=== PATIENT | male | born 1970 | race Caucasian/White ===

== ENCOUNTER 2022-07-31 18:10 | Inpatient (IN) | payer OTHER, SELFPAY ==
[2022-07-31 18:28] VITALS: BP 113/64; PULSE 68; RESP 18; TEMP 36.8; O2SAT 100; BMI 21.1
--- NOTE | 2022-07-31 18:47 | DI.RAD.S_ITS ---
PROCEDURE: XR ELBOW LT MIN 3V INDICATIONS: pain, swelling, redness TECHNIQUE: 3 views of the elbow were acquired. COMPARISON: None. FINDINGS: Bones: No acute fractures or dislocations. No suspicious bony lesions. Soft tissues: Diffuse soft tissue edema is seen surrounding the elbow. No obvious joint effusion. IMPRESSION: Diffuse nonspecific soft tissue edema. No acute osseous abnormality. If clinical suspicion and/or symptoms persist, additional imaging with repeat plain films, or advanced imaging (e.g. CT, MRI) may be helpful for further assessment. Dictated by: Guido Woodson M.D. on 07/31/2022 at 19:19 Approved by: Guido Woodson M.D. on 07/31/2022 at 19:20
[2022-07-31 19:00] LABS: Add Manual Diff / Slide Review NO; Basophils Absolute Auto 100 /uL (0-100); Basophils Percent Auto 0.5 % (0-2); Eosinophils Absolute Auto 0 /uL (0-450); Eosinophils Percent Auto 0.3 % (2-4); Hematocrit 42.3 % (41-53); Hemoglobin 14.8 g/dL (13.5-17.5); Lymphocytes Absolute Auto 1300 /uL (1100-4500); Lymphocytes Percent Auto 9.3 % (25-40); Mean Corpuscular HGB Conc 34.9 % (30-36); Mean Corpuscular Hemoglobin 32.3 PG (26-34); Mean Corpuscular Volume 92.6 fL (80-100); Monocytes Absolute Auto 1400 /uL (0-900); Monocytes Percent Auto 9.8 % (3-14); Neutrophils Absolute Auto 11300 /uL (1500-7000); Neutrophils Percent Auto 80.1 % (50-75); Platelet Count 315 X10^3/uL (150-400); Red Blood Cell Count 4.57 X10^6/uL (4.5-5.9); Red Cell Distribution Width 12.1 % (11.6-14.8); White Blood Cell Count 14.1 X10^3/uL (4.5-11.0)
[2022-07-31 19:15] LABS: Lactate (Lactic Acid) 1.4 mmol/L (0.7-2.1)
[2022-07-31 19:17] LABS: Alanine Aminotransferase 14 IU/L (<50); Albumin 4.5 g/dL (3.5-5.0); Albumin Globulin Ratio 1.1 (1.0-2.8); Alkaline Phosphatase 62 U/L (38-126); Aspartate Aminotransferase 23 IU/L (17-59); BUN Creatinine Ratio 14.4 (6-22); Blood Urea Nitrogen 13 mg/dL (9-20); C-Reactive Protein Quant 4.4 mg/dL (<1.0); Calcium 8.9 mg/dL (8.4-10.2); Carbon Dioxide 26 mmol/L (22-32); Chloride 97 mmol/L (98-107); Estimated Glomerular Filt Rate > 60 mL/min (>60); Glucose 97 mg/dL (70-100); HEMOLYSIS < 15 (0-50); Potassium 3.8 mmol/L (3.4-5.1); Sodium 136 mmol/L (137-145); Total Protein 8.5 g/dL (6.3-8.2)
[2022-07-31 19:35] LABS: Erythrocyte Sedimentation Rate 30 MM/HR (0-15)
[2022-07-31] MEDS: SODIUM CHLORIDE 0.9% 1,000 ML 1000 ML IV (21:01)
[2022-07-31 21:09] VITALS: BP 111/66; PULSE 82; TEMP 37.7; O2SAT 99
--- NOTE | 2022-07-31 21:12 | PC.NURSE ---
Pt reports bursitis of left elbow that began 4 days ago with increased swelling. Reports fever, chills, fatigue, some nausea, and lightheadedness. Left elbow is swollen, red, warm to the touch with streaking up to the interior aspect of arm. Pt reports recent inguinal hernia repair about 15 days ago. Denies SOB and chest pain.
[2022-07-31] MEDS: DOXYCYCLINE HYCLATE 100 MG TABLET PO (22:06)
--- NOTE | 2022-07-31 22:15 | ED_ITS ---
HPI - Wound/Laceration General Chief Complaint: Wound/Laceration Stated Complaint: lt elbow bursitis, red lines to chest Time Seen by Provider: 07/31/22 18:47 Source: patient Mode of arrival: Ambulatory History of Present Illness HPI narrative: 52-year-old male nonsmoker with noncontributory medical history presents with a chief complaint of 4 days of worsening left elbow pain, swelling and redness and now red streaks up his arm along with fever and chills. He denies any nausea or vomiting. He is had no chest pain or shortness of breath. He denies any injury but states that he developed swelling as stated that has been gradually getting worse. He denies any history of skin infections. He has pain with range of motion and palpation and improvement with rest. Related Data Allergies Allergy/AdvReac Type Severity Reaction Status Date / Time shrimp Allergy Severe Anaphylaxis Verified 07/31/22 21:35 ciprofloxacin [From Cipro] AdvReac Verified 07/31/22 21:35 Review of Systems Review of Systems Narrative: GENERAL: See HPI HEENT: Denies sinus pain, ear pain, sore throat, difficulty swallowing, dizziness. RESPIRATORY: Denies dyspnea, cough, wheezing, hemoptysis, sputum. CARDIOVASCULAR: Denies chest pain, palpitations, orthopnea, edema, GASTROINTESTINAL: Denies nausea, vomiting, abdominal pain, diarrhea, constipation, melena. : Denies dysuria, frequency, incontinence, hematuria, urinary retention. MUSCULOSKELETAL: See HPI SKIN: See HPI NEUROLOGIC: Denies weakness, headache, numbness, change in speech, confusion, seizures, incoordination. PSYCHIATRIC: No concerning psychosocial issues. 12 point review of systems is negative except for those stated above Patient History Social History Smoking Status: Never smoker Smoking Status: Never smoker alcohol intake frequency: 0-2 drinks per day Substance Use Type: does not use Exam Narrative Exam Narrative: GENERAL: [52] year old patient appears stated age. Well-developed patient, in mild distress. HEAD: Atraumatic. Normocephalic. EYES: Pupils equal round and reactive. Extraocular motions intact. No scleral icterus. No injection or drainage. ENT: Nose without bleeding, purulent drainage. Throat without erythema, tonsillar hypertrophy or exudate. Airway patent. NECK: Trachea midline. Non tender CARDIOVASCULAR: Regular rate and rhythm without murmurs, gallops, or rubs. RESPIRATORY: Clear to auscultation. Breath sounds equal bilaterally. No wheezes, rales, or rhonchi. GASTROINTESTINAL: Abdomen soft, non-tender, nondistended. EXTREMITIES: Full but painful range of motion at left elbow significant swelling and induration with erythema and some skin sloughing overlying the olecranon and significant surrounding erythema and induration with lymphangitis extending up to the axilla, the area of induration and erythema extends proximal from the obvious abscess 8-10 cm BACK: Nontender without deformity or crepitance. No flank tenderness. NEURO: AOx3. SKIN: No rash or erythema of visible areas Initial Vital Signs Initial Vital Signs: Vital Signs Temperature 98.3 F 07/31/22 18:28 Pulse Rate 68 07/31/22 18:28 Respiratory Rate 18 07/31/22 18:28 Blood Pressure 113/64 07/31/22 18:28 Pulse Oximetry 100 07/31/22 18:28 Oxygen Delivery Method 07/31/22 18:28 Procedures Abscess I/D I&D #1: Site: upper extremity Side (if applicable): left Local Anesthetic: lidocaine 2% Amount of anesthesia used (mL): 8 Technique: incised with #11 blade Amount of fluid expressed (mL): 15 Irrigation: No Packing used?: none Course Orders Ordered: ED Orders 07/31/22 18:40 C-Reactive Protein Quant Stat Complete Blood Count AUTO DIFF Stat Comprehensive Metabolic Panel Stat Erythrocyte Sedimentation Rate Stat Lactate (Lactic Acid) Stat 07/31/22 18:47 XR elbow LT min 3V Stat 07/31/22 18:52 Blood Culture Stat 07/31/22 22:09 Wound Culture and Gram Stain Stat 07/31/22 22:18 COVID19 -Nasal RAPID/Pre-Proc Stat Discontinued Medications Doxycycline Hyclate (Doxycycline Hyclate 100 Mg Tablet) 100 mg PO NOW ONE Stop: 07/31/22 21:52 Last Admin: 07/31/22 22:06 Dose: 100 mg Documented By: TAMMY Hydromorphone HCl (Hydromorphone 0.5 Mg Inj) 0.5 mg IV NOW ONE Stop: 07/31/22 22:18 Last Admin: 07/31/22 22:24 Dose: 0.5 mg Documented By: TAMMY Sodium Chloride (Normal Saline 0.9%) 1,000 mls @ 1,000 mls/hr IV BOLUS ONE Stop: 07/31/22 19:46 Last Infusion: 07/31/22 22:14 Dose: 0 mls/hr Documented By: Admin: 07/31/22 21:01 Dose: 1,000 mls/hr Documented By: TAMMY Vancomycin HCl/Dextrose (Vancomycin) 1,500 mg in 300 mls @ 200 mls/hr IV NOW ONE Stop: 07/31/22 23:45 Last Infusion: 07/31/22 23:58 Dose: 0 mls/hr Documented By: Admin: 07/31/22 22:24 Dose: 200 mls/hr Documented By: TAMMY Ondansetron HCl (Ondansetron 4 Mg/2 Ml Inj) 4 mg IV NOW ONE Stop: 07/31/22 22:18 Last Admin: 07/31/22 22:25 Dose: 4 mg Documented By: TAMMY Consultations Consultation #1: Discussed with on-call orthopedist, he agrees to take patient onto his service and will see him early in the morning, request patient be NPO after midnight Vital Signs Vital signs: Vital Signs - 8 hr 07/31/22 18:28 07/31/22 21:09 Temperature 98.3 F 99.8 F H Pulse Rate 68 82 Respiratory Rate 18 Blood Pressure 113/64 111/66 Pulse Oximetry 100 99 Oxygen Delivery Method Room Air Room Air MDM - Wound/Laceration Lab Data Result diagrams: 07/31/22 18:40 07/31/22 18:40 Labs: Lab Results 07/31/22 07/31/22 07/31/22 Range/Units 18:40 18:40 18:40 WBC 14.1 H (4.5-11.0) X10^3/uL RBC 4.57 (4.5-5.9) X10^6/uL Hgb 14.8 (13.5-17.5) g/dL Hct 42.3 (41-53) % MCV 92.6 (80-100) fL MCH 32.3 (26-34) PG MCHC 34.9 (30-36) % RDW 12.1 (11.6-14.8) % Plt Count 315 (150-400) X10^3/uL Neut % (Auto) 80.1 H (50-75) % Lymph % (Auto) 9.3 L (25-40) % Mcpherson % (Auto) 9.8 (3-14) % Eos % (Auto) 0.3 L (2-4) % Baso % (Auto) 0.5 (0-2) % Neut # (Auto) 61061 H (6458-6081) /uL Lymph # (Auto) 1300 (8030-0149) /uL Mcpherson # (Auto) 1400 H (0-900) /uL Eos # (Auto) 0 (0-450) /uL Baso # (Auto) 100 (0-100) /uL ESR 30 H (0-15) MM/HR Sodium 136 L (137-145) mmol/L Potassium 3.8 (3.4-5.1) mmol/L Chloride 97 L (98-107) mmol/L Carbon Dioxide 26 (22-32) mmol/L BUN 13 (9-20) mg/dL Creatinine 0.90 (0.66-1.25) mg/dL Estimated GFR > 60 (>60) mL/min BUN/Creatinine Ratio 14.4 (6-22) Glucose 97 (70-100) mg/dL Lactate 1.4 (0.7-2.1) mmol/L Calcium 8.9 (8.4-10.2) mg/dL Total Bilirubin 1.0 (0.2-1.3) mg/dL AST 23 (17-59) IU/L ALT 14 (<50) IU/L Alkaline Phosphatase 62 (38-126) U/L C-Reactive Protein 4.4 H (<1.0) mg/dL Total Protein 8.5 H (6.3-8.2) g/dL Albumin 4.5 (3.5-5.0) g/dL Globulin 4.0 (1.7-4.1) g/dL Albumin/Globulin Ratio 1.1 (1.0-2.8) Discharge Plan Departure Patient Disposition: Admitted As Inpatient Clinical Impression: Abscess Admit Date/Time: 07/31/22 22:27 Admit Provider: Mary Issa
[2022-07-31] MEDS: VANCOMYCIN 1,500 MG/300 ML PIGGYBACK 200 MG IV (22:24)
[2022-07-31] MEDS: HYDROMORPHONE 0.5 MG INJ IV (22:24)
[2022-07-31] MEDS: ONDANSETRON 4 MG/2 ML INJ IV (22:25)
[2022-08-01] VITALS (25 sets, daily range): BP systolic 88–137; BP diastolic 54–83; PULSE 57–83; RESP 11–20; TEMP 35.9–37.4; O2SAT 95–100; BMI 21.1
[2022-08-01 02:08] LABS: COVID19 -Nasal RAPID Negative (Negative)
[2022-08-01] MEDS: VANCOMYCIN 1,000 MG/200 ML PIGGYBACK 200 MG IV ×2 (08:06→18:57)
[2022-08-01] MEDS: SODIUM CHLORIDE 0.9% 1,000 ML 125 ML IV (08:06)
--- NOTE | 2022-08-01 09:00 | PC.NURSE ---
Dr Bello at [facility], pt on surgery schedule but has one case ahead of him. pt to remain npo.
[2022-08-01] MEDS: LACTATED RINGERS 1,000 ML 84 ML IV (16:03)
--- NOTE | 2022-08-01 16:06 | P.HP_ITS ---
History of Present Illness History of Present Illness Date Patient Seen: 08/01/22 Time Patient Seen: 08:40 Date of Onset of Symptoms: 07/28/22 Chief complaint: lt elbow bursitis, red lines to chest Narrative: Mr. Pete is a 52 yo M with 4 day history of worsening left elbow pain, redness and swelling. He presented to ER for severe pain and swelling to his left elbow over the olecranon. ER exam showed drainage purulent wound from the subcutanous wound. Patient was admitted for IV antibiotics to orthopedic service. After evaluation and discussing treatment options, patient is scheduled for emergent I&D in the operating room. Patient History Family & Social History Social History: household members none Safety & Behavioral: Feels Safe in Current Yes Environment Tobacco & Substance use: Tobacco type cigarettes,smokeless tobacco Smoking Status Former smoker alcohol intake current alcohol intake frequency 0-2 drinks per day Substance Use Type does not use Meds Home Medications and Allergies Home Medications Medication Instructions Recorded Confirmed Type No Known Home Medications 08/01/22 08/01/22 History Allergies Allergy/AdvReac Type Severity Reaction Status Date / Time shrimp Allergy Severe Anaphylaxis Verified 07/31/22 21:35 ciprofloxacin [From Cipro] AdvReac Verified 07/31/22 21:35 Review of Systems Review of Systems ROS: Yes All systems reviewed with the patient and are negative except as otherwise documented Exam Vital Signs (past 8 hours): - 08/01/22 08:08 08/01/22 08:09 08/01/22 08:09 Temperature Pulse Rate 67 65 Respiratory Rate Blood Pressure 99/55 L Pulse Oximetry 98 98 Oxygen Delivery Method 08/01/22 08:14 08/01/22 08:14 08/01/22 08:21 Temperature Pulse Rate 64 61 Respiratory Rate Blood Pressure 99/56 L Pulse Oximetry 100 100 Oxygen Delivery Method 08/01/22 08:21 08/01/22 08:30 08/01/22 09:00 Temperature Pulse Rate 62 Respiratory Rate Blood Pressure 104/61 98/56 L Pulse Oximetry 100 Oxygen Delivery Method 08/01/22 09:00 08/01/22 09:30 08/01/22 10:00 Temperature Pulse Rate 63 71 Respiratory Rate Blood Pressure 102/58 L Pulse Oximetry 99 100 Oxygen Delivery Method 08/01/22 10:00 08/01/22 10:15 08/01/22 10:15 Temperature Pulse Rate 60 67 Respiratory Rate Blood Pressure 107/58 L Pulse Oximetry 95 Oxygen Delivery Method 08/01/22 10:30 08/01/22 11:00 08/01/22 11:00 Temperature Pulse Rate 57 L 60 Respiratory Rate Blood Pressure 88/57 L Pulse Oximetry 99 99 Oxygen Delivery Method 08/01/22 15:47 Temperature 98.5 F Pulse Rate 61 Respiratory Rate 20 Blood Pressure 108/64 Pulse Oximetry 99 Oxygen Delivery Method Room Air Oxygen Delivery Method Room Air Extrem Other: left elbow with open wound draining purulent material, area of erythema around the wound extending to forearm and mid upper arm. Arm compartments feels soft w/o s/s of compartment syndrome. Neurovascularly intact on exam. Objective Labs Result Diagrams: 07/31/22 18:40 07/31/22 18:40 Labs: Laboratory Results - last 24 hr 07/31/22 07/31/22 07/31/22 18:40 18:40 18:40 WBC 14.1 H RBC 4.57 Hgb 14.8 Hct 42.3 MCV 92.6 MCH 32.3 MCHC 34.9 RDW 12.1 Plt Count 315 Neut % (Auto) 80.1 H Lymph % (Auto) 9.3 L Allen % (Auto) 9.8 Eos % (Auto) 0.3 L Baso % (Auto) 0.5 Neut # (Auto) 45827 H Lymph # (Auto) 1300 Allen # (Auto) 1400 H Eos # (Auto) 0 Baso # (Auto) 100 ESR 30 H Sodium 136 L Potassium 3.8 Chloride 97 L Carbon Dioxide 26 BUN 13 Creatinine 0.90 Estimated GFR > 60 BUN/Creatinine Ratio 14.4 Glucose 97 Lactate 1.4 Calcium 8.9 Total Bilirubin 1.0 AST 23 ALT 14 Alkaline Phosphatase 62 C-Reactive Protein 4.4 H Total Protein 8.5 H Albumin 4.5 Globulin 4.0 Albumin/Globulin Ratio 1.1 SARS-CoV-2 (PCR) 07/31/22 22:46 WBC RBC Hgb Hct MCV MCH MCHC RDW Plt Count Neut % (Auto) Lymph % (Auto) Allen % (Auto) Eos % (Auto) Baso % (Auto) Neut # (Auto) Lymph # (Auto) Allen # (Auto) Eos # (Auto) Baso # (Auto) ESR Sodium Potassium Chloride Carbon Dioxide BUN Creatinine Estimated GFR BUN/Creatinine Ratio Glucose Lactate Calcium Total Bilirubin AST ALT Alkaline Phosphatase C-Reactive Protein Total Protein Albumin Globulin Albumin/Globulin Ratio SARS-CoV-2 (PCR) Negative Assessment & Plan Assessment & Plan narrative: Patient has septic left olecranon bursitis with extending abscess into subcutaneous tissue of upper arm and forearm. Risks for surgery include but not limited to bleeding, infection, nerve/blood vessel injury, recurrent infection, need for additional procedure, elbow stiffness, pain. Patient understands and would like to proceed with surgery. He is schedule for left elbow/arm I&D. Time Spent With Patient Critical Care time: I spent a total of [] minutes of critical care time on this patient's care today; this time is exclusive of procedural time.
--- NOTE | 2022-08-01 17:04 | SUR.OPER ---
Supine on gel mattress OR table, head on one pillow. Safety strap over thighs, right arm <90 abduction on padded armboard and secured. Left arm on wide padded armboard in surgeon control. Lower legs secured with tape over blanket.
--- NOTE | 2022-08-01 17:39 | P.OP_ITS ---
Operative Date/Time/Diagnoses Date of procedure: 08/01/22 Time of procedure: 16:00 Pre-op diagnosis: 1. Left elbow septic bursitis 2. Left arm abscess Post-op diagnosis: same Procedure & Clinicians Procedure: 1. Left elbow olecranon bursa irrigation and debridement 2. Left arm abscess irrigation and debridement Same procedure as scheduled: Yes Indications: Mr. Pete is a 52 yo M with worsening left elbow septic olecranon bursitis and cellulitis. He has worsening swelling, pain and drainage abscess with worsening cellulitis. After informed consent was obtained, patient was taken to OR for emergent I&D of his left arm. Surgeon: Mary Issa Transformer Builder: Christina Ibanez Click Yes if Unassisted: No Anesthesia Type: General Operative Notes Closure Type: primary Specimen(s): other Estimated Blood Loss (mL): 5 Blood products transfused: none Procedure in detail: After patient was consented of risks and benefits of surgery, informed consent was obtained and placed in the chart. Patient was taken to the operating room. Prophylactic antibiotic was given less than half our prior to skin incision. A tourniquet was placed on patient's left upper arm. Patient's left arm was prepped and draped in sterile fashion. Time-out was performed at this time. Patient's left arm was elevated for 1 min the tourniquet was inflated to 250 mm Hg. Marking pen was used to ester out a 3 in incision over the left olecranon. The incision was made from proximal to the olecranon to distal down the arm away from the ulnar aspect of the elbow. Using combination of scalpel and Metzenbaum scissor, the olecranon bursa was dissected and isolated. The bursa was necrotis and has significant amount of necrotic tissue along with purulent fluid. Incision was made over the bursa and significant amount of cloudy yellowish fluid was aspirated from the wound total approximately 20 cc. The culture was taken from the olecranon bursa. At this time was identified the chronically inflamed bursa eroded parts of the olecranon. The structural integrity of the olecranon is still intact after ca reful inspection. Leksell rongeur and curette was used to debride the wound as well as the olecranon bone. Small portions of unhealthy appearing soft tissue was well as bony tissue was excised from the wound in the process of debridement. After debridement was completed, the wound was irrigated copiously with sterile normal saline. The subcutaneous tissue was suspected both proximal and distal to the olecranon. Small pockets of abscess was identified and debrided. At this time the wound was reinspected. All tissue surface was healthy in appearance. The wound was packed with half-inch packing strip. Approximately a 15 in of half-inch packing strip was placed inside the wound. The incision was then loosely approximated with 2-0 nylon suture. A sterile dressing was applied the patient's left elbow. The tourniquet was deflated at this time. Patient was woken up from anesthesia and transferred to recovery room in stable condition. Patient tolerated the procedure well and there were no complications estimated blood loss is 5 cc. Complications: none Post-operative Condition: stable Disposition: PACU Plan for aftercare: Admit to inpatient hospital
[2022-08-01] MEDS: ACETAMINOPHEN 325 MG TABLET 975 MG PO (17:53)
[2022-08-01] MEDS: ONDANSETRON 4 MG/2 ML INJ IV (17:54)
[2022-08-01] MEDS: OXYCODONE IR 5 MG TABLET PO ×2 (17:54→18:17)
--- NOTE | 2022-08-01 17:57 | P.OP_ITS ---
Operative Date/Time/Diagnoses Date of procedure: 08/01/22 Time of procedure: 18:15 Pre-op diagnosis: 1. Left elbow septic bursitis 2. Left arm abscess 3. Left hand abscess Post-op diagnosis: same Procedure & Clinicians Procedure: 1. Left hand abscess incision and drainage 2. Left elbow irrigation and debridement of bursa, skin and muscle Same procedure as scheduled: Yes Indications: Mr. Pete is a 52 yo M with 4 day history of penetrating wound that became infected and draining to his left elbow. He also has a left hand abscess that is not spontaneously draining that is painful and swollen. After obtaining informed consent, he is taken to OR emergently for I&D of his left hand and elbow/arm. Surgeon: Mary Issa Special Events Fundraiser: Christina Ibanez Click Yes if Unassisted: No Anesthesia Type: General Operative Notes Closure Type: primary Estimated Blood Loss (mL): 5 Blood products transfused: none Procedure in detail: After patient was consented of risks and benefits of surgery, informed consent was obtained and placed in the chart. Patient was taken to the operating room. Prophylactic antibiotic was given less than half our prior to skin incision. A tourniquet was placed on patient's left upper arm. Patient's left arm was prepped and draped in sterile fashion. Time-out was performed at this time. Patient's left arm was elevated for 1 min the tourniquet was inflated to 250 mm Hg. Marking pen was used to ester out a 2 in incision over the left olecranon. The incision was made from proximal to the olecranon to distal down the arm away from the ulnar aspect of the elbow. Using combination of scalpel and Metzenbaum scissor, the olecranon bursa was dissected and isolated. The bursa was significantly inflated due to the infectious nature. Incision was made over the bursa and significant amount of cloudy yellowish fluid was aspirated from the wound total approximately 20 cc. The culture was taken from the olecranon bursa. The bursa was excised by removing all of its capsule from over the olecranon and from within the soft tissue. At this time was identified the chronically inflamed bursa eroded parts of the olecranon. The unhealthy appearing tissue was debrided using the rongeur and scalpel until healthy-appearing tissue was exposed. Removed tissue included skin, ferguson bcutaneous tissue and bursa. Bijal garciageur and curette was used to debride the wound as well as the olecranon bone. Small portions of unhealthy appearing soft tissue was well as bony tissue was excised from the wound in the process of debridement. After debridement was completed, the wound was irrigated copiously with sterile normal saline. His thenar eminence was inspected next. There is a significant swelling and abscess measuring approximately 1 in over the thenar eminence. A 11 blade was used to incise the abscess and approximately 5 cc of purulent material risks expressed from the thenar eminence. The wound was explored. No additional collection abscess was identified in the left hand. At this time the wound was reinspected. The entire olecranon bursa was excised from the wound. All tissue surface was healthy in appearance. Quarter-inch packing strip was used to pack into the wound of over the olecranon/arm and the left hand. The incision was then closed with 2-0 nylon suture. A sterile dressing was applied the patient's left elbow. The tourniquet was deflated at this time. Patient was woken up from anesthesia and transferred to recovery room in stable condition. Patient tolerated the procedure well and there were no complications estimated blood loss is 5 cc. Complications: none Post-operative Condition: stable Disposition: PACU Plan for aftercare: Admit to inpatient hospital
[2022-08-01] MEDS: HYDROMORPHONE 2 MG INJ IV ×2 (17:58→18:18)
[2022-08-01] MEDS: LACTATED RINGERS 1,000 ML 42 ML IV (18:00)
[2022-08-01] MEDS: HYDROMORPHONE 1 MG INJ 0.5 MG IV (23:29)
[2022-08-02 05:26] VITALS: BP 113/68; PULSE 75; RESP 16; TEMP 37.2; O2SAT 98
[2022-08-02] MEDS: OXYCODONE IR 5 MG TABLET PO (05:54)
[2022-08-02] MEDS: HYDROMORPHONE 1 MG INJ 0.5 MG IV (06:38)
[2022-08-02 08:35] VITALS: BP 109/68; PULSE 68; RESP 16; TEMP 36.5; O2SAT 100
[2022-08-02] MEDS: ACETAMINOPHEN 325 MG TABLET 650 MG PO (09:52)
[2022-08-02] MEDS: IBUPROFEN 400 MG TABLET PO ×3 (11:05→22:28)
[2022-08-02] MEDS: VANCOMYCIN 1,000 MG/200 ML PIGGYBACK 200 MG IV (11:59)
--- NOTE | 2022-08-02 12:05 | CM.DANOTE ---
DCP: Case received, EMR reviewed and met with patient. Introduced self and role. Was able to obtain information regarding patient's baseline activity status prior to hospitalization. DCP assessment completed with information currently available. Patient is a 52 year old male who admitted on 07/31 to the care of the hospitalist team. PCP: Dr. Majano at [facility] in [place]. Payer: confirmed: [facility] Patient came to the hospital via private vehicle secondary to his having some swelling and redness to his left elbow which was spreading to his arm. Patient denies any injury. Patient was noted to have abscess. H was admitted for IV antibiotics to orthopedic service. His was diagnosed with septic left olecranon bursitis with extending abscess. He did have I&D of extremity yesterday. Met with patient in his room. He is alert and oriented, has his left elbow with mounika wrap. Confirmed that he has a boat that he has been staying on, based out of [place]. He goes to [facility] for his primary care needs. His concerns, are if he has to follow up here with his insurance. Let him know that this is up to ortho regarding any follow up appointments. He is referred to billing if he has any concerns about his coverage. It is not certain at this time if patient will need senior care ABO. Barrier would be staying on his boat, if this is the case. P: DCP to continue to follow closely for any needs. Plan is home when stable, but will depend upon need for IV ABO. Leyla Lewis RN/Profile Grinder Technician Discharge Planning/Care Management CM Discharge Assessment Start: 08/02/22 12:03 Freq: Status: Active Protocol: Document 08/02/22 12:03 (Rec: 08/02/22 12:05 [id number]) Discharge Planning Assessment Assigned City Surveyor Leyla Lewis RN/Profile Grinder Technician Advance Directives? No History Provided By Patient,Medical Record Comment Patient has been staying on his boat. Household Members none Type of transporation used prior to Drives own vehicle admit Independent with ADL's Yes Is patient alert and oriented? Yes Caregiver for Another No Barriers to Discharge No Comment Unless patient needs prolonged IV ABO therapy, since he is staying on his boat. Discharge Plan Home Transportation Arrangement Self Referrals Initiated Other Additional Comment Will see what ortho plan is in today's note. Whiteboard Updated in Patient Room with Yes name and ext. # of City Surveyor Review Status In Process Next Review Type Continued Stay Review
--- NOTE | 2022-08-02 12:12 | PT-IP ANOTE ---
PT eval order received and EMR reviewed. Per nursing staff, pt is independent with mobility in room. informed PA and agreed to d/c PT eval order but wants OT eval for finger exercises.
[2022-08-02 12:43] VITALS: BP 101/58; PULSE 72; RESP 16; TEMP 37.1; O2SAT 98
[2022-08-02 14:21] LABS: Add Manual Diff / Slide Review NO; Basophils Absolute Auto 100 /uL (0-100); Basophils Percent Auto 0.6 % (0-2); Eosinophils Absolute Auto 500 /uL (0-450); Eosinophils Percent Auto 4.4 % (2-4); Hematocrit 35.6 % (41-53); Hemoglobin 12.5 g/dL (13.5-17.5); Lymphocytes Absolute Auto 1500 /uL (1100-4500); Lymphocytes Percent Auto 13.8 % (25-40); Mean Corpuscular HGB Conc 35.1 % (30-36); Mean Corpuscular Hemoglobin 32.6 PG (26-34); Mean Corpuscular Volume 93.1 fL (80-100); Monocytes Absolute Auto 1100 /uL (0-900); Monocytes Percent Auto 10.2 % (3-14); Neutrophils Absolute Auto 7500 /uL (1500-7000); Platelet Count 316 X10^3/uL (150-400); Red Blood Cell Count 3.82 X10^6/uL (4.5-5.9); Red Cell Distribution Width 12.1 % (11.6-14.8); White Blood Cell Count 10.6 X10^3/uL (4.5-11.0)
[2022-08-02 14:30] LABS: C-Reactive Protein Quant 6.9 mg/dL (<1.0)
[2022-08-02 14:36] LABS: Vancomycin Trough 17.3 ug/mL (10-20)
[2022-08-02 14:40] LABS: Erythrocyte Sedimentation Rate 40 MM/HR (0-15)
--- NOTE | 2022-08-02 15:18 | OT.IP.EVAL ---
Current Diagnoses Cutaneous abscess, unspecified (07/31/22) Surgery Performed Operation Date: 08/01/22 16:45 Actual Procedures p Left arm/elbow irrigation and debridement. Incision and drainage.(Left) - Mary Issa MD Occupational Therapy Inpatient Evaluation/Re-Eval M1 PT/OT-IP Prior Functional Status Start: 08/02/22 15:22 Freq: NEEDED Status: Active Protocol: Document 08/02/22 15:22 CGR (Rec: 08/02/22 15:48 CGR [id number]) Medical Review Prior Functional Status Medical History Reviewed Yes Communication Pt is an effective verbal communicator. Mobility and Gait Pt was IND in all functional mobility at baseline Activities of Daily Living and IADL's Pt was IND in all ADLs at baseline. Prior Functional Level (Other details) Pt owns a boat that is docked in [place] and a sprinter camper van. Pt states that he lives between the two locations as needed. 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 Social History Household Members none Living Arrangements RV Additional Social History Comment Pt lives between his boat and his camper van. M2 OT-IP Current Condition Start: 08/02/22 15:22 Freq: Status: Active Protocol: Document 08/02/22 15:22 CGR (Rec: 08/02/22 15:48 CGR [id number]) Occupational Therapy Current Condition Current Condition Evaluation Date 08/02/22 Treatment Diagnosis L elbow brusitis s/p 08/01 I&D L elbow. Diagnosis Onset Date 07/31/22 M3 OT- IP Subjective and Pain Start: 08/02/22 15:22 Freq: Status: Active Protocol: Document 08/02/22 15:22 CGR (Rec: 08/02/22 15:48 CGR [id number]) OT- Subjective Occupational Therapy Visit Type Type Initial Evaluation Visit Start Time 12:54 Visit Stop Time 15:18 Total Visit Minutes 24 OT Pain Assessment Pain When Pain Assessed At Rest Pain Present Pain Present Denied Pain M4 OT- IP ADL's Start: 08/02/22 15:22 Freq: Status: Active Protocol: Document 08/02/22 15:22 CGR (Rec: 08/02/22 15:48 CGR [id number]) OT [id number] Comments OT Self-Feeding Comments not meal time OT ADL-Grooming General Evaluation Areas Needing Assistance Face Washing Comments OT Grooming Comments standing at sink OT ADL-Oral Care General Eval Oral Care Ability Independent Areas of Assistance Brushing Teeth Comments Oral Care Comments standing at sink OT ADL-Dressing Comments OT Dressing Comments not performed OT ADL-Toileting General Evaluation Toileting Ability Independent Comments OT Toileting Comments simulated seated on toilet OT ADL-Bathing Comments OT Bathing Comments not performed M5 OT- IP IADL's Start: 08/02/22 15:22 Freq: Status: Active Protocol: Document 08/02/22 15:22 CGR (Rec: 08/02/22 15:48 CGR [id number]) OT-Instrumental Activities of Daily Living Deficits IADL Deficits Identified No Deficits Home Safety Awareness Awareness of Need for Assistance at Home Good Awareness Ability to Problem Solve Emergency Able to Problem Solve Situations Medication Management Medication Management No Deficits Identified Money Management Money Management No Deficits Identified Meal Preparation Meal Preparation No Deficits Identified Ring Spinner Ring Spinner No Deficits Identified 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 OT- IP Functional Cognition Start: 08/02/22 15:22 Freq: Status: Active Protocol: Document 08/02/22 15:22 CGR (Rec: 08/02/22 15:48 CGR [id number]) Cognitive Factors Limiting Selfcare Function Cognitive Ability Level of Alertness Alert Patient Orientation Name,Age,Birthday,Month,Date, Year,Day of Week,Place, Situation Attention Span Ability Capable of Focused Attention, Capable of Sustained Attention Ability to Follow Commands Able to Follow Multi-Step Commands OT- Vision and Hearing OT- Hearing Assessment OT- Hearing Assessment WFL OT- Vision Assessment Visual Acuity Glasses For Reading Visual Attentiveness WFL Occular Pursuits WFL Visual Convergence WFL M7 OT- IP Mobility and Balance Start: 08/02/22 15:22 Freq: Status: Active Protocol: Document 08/02/22 15:22 CGR (Rec: 08/02/22 15:48 CGR [id number]) OT- Bed Mobility Assessment Supine to Sit Supine to Sit Assist Independent Sit to Supine Sit to Supine Assist Independent Scooting Scooting to Edge of Bed Independent OT-Transfer Assessment Sit to and From Stand Sit to and from Stand Independent Transfers Transfer Ability Independent Technique Transfer Destination Bed,Chair,Toilet Transfer Technique Stand Step Pivot Devices Transfer Assistive Devices None OT- Balance Assessment Sitting Balance and Reactions Static Sitting Balance Ability Normal Dynamic Sitting Balance Ability Normal Standing Balance and Reactions Static Standing Balance Ability Normal Dynamic Standing Balance Ability Normal M8 OT- IP Objective Assessments Start: 08/02/22 15:22 Freq: Status: Active Protocol: Document 08/02/22 15:22 CGR (Rec: 08/02/22 15:48 CGR [id number]) OT Gross Range of Motion Upper Extremity Range of Motion Assessment Left Impaired ROM Impairments L shld restrictions from previous injury L elbow restrictions from recent injury OT- Coordination Assessment Upper Extremity Finger to Nose Test Within Functional Limits Finger Tapping Test Within Functional Limits OT-Muscle Tone Assessment Muscle Tone WNL Yes OT Sensation Assessment Edema Edema Absent M9 OT- IP Assessment and Plan Start: 08/02/22 15:22 Freq: Status: Active Protocol: Document 08/02/22 15:22 CGR (Rec: 08/02/22 15:48 CGR [id number]) OT Summary Assessment and Plan Potential Rehabilitation Potential Excellent Analytic Complexity at Evaluation Low Summary OT Impairments Pain,Range of Motion,Strength Progress Towards Goals Progressing Toward Goals Assessment Summary Pt presents as a low complexity evaluation s/p admit for L elbow pain. Pt underwent 08/01/22 emergency I& D. Discussed case with FEMI Ibanez who states AROM to hand, wrist and shld to tolerance and gentle AROM to elbow and forearm d/t concern for sutures. Pt participated in general screening of abilities then educated on UE therex per limitations. Pt performed therex and states understanding. Pt was provided with 2 handouts for UE therex and theraputty and yellow theraputty. Pt is likely to be safe for a discharge home alone. Goals OT-Other Goals Can perform UE therex without assist. Days to Meet Goals 2 Frequency of Treatment Frequency Of Treatment Once a Day Treatment Plan OT Treatment Plan Therapeutic Exercises Other Treatment Recommendations and Next UE therex Treatment Focus Discharge Recommendations OT Discharge Recommendations Home Transportation Needs at Discharge Private Vehicle
[2022-08-02 17:00] VITALS: BP 101/56; PULSE 59; RESP 15; TEMP 36.6; O2SAT 96
[2022-08-02] MEDS: VANCOMYCIN 1,000 MG/200 ML PIGGYBACK 175 MG IV (19:37)
[2022-08-02] MEDS: SODIUM CHLORIDE 0.9% FLUSH 10 ML IV (19:47)
[2022-08-02 20:45] VITALS: BP 107/60; PULSE 58; RESP 18; TEMP 36.9; O2SAT 99
--- NOTE | 2022-08-02 21:36 | PM.PNPO.1 ---
Subjective Subjective Date Patient Seen: 08/02/22 Time Patient Seen: 11:30 Interval history: The patient is complaining of moderate left elbow pain, currently well managed with Tylenol. He denies fevers, chills or night sweats. No new numbness or tinlging. Exam Vital Signs (past 8 hours): - 08/02/22 17:00 Temperature 97.9 F Pulse Rate 59 L Respiratory Rate 15 Blood Pressure 101/56 L Pulse Oximetry 96 Oxygen Flow Rate 0 Oxygen Delivery Method Room Air Oxygen Flow Rate 0 Narrative Exam Narrative: Pleasant 52 yo male, resting comfortably in bed, no acute distress. The bandage is clean, dry, intact and was taken down and replaced. Left elbow incision demonstrates mild erythema and warmth. Several inches of packing was removed today. The elbow was rebandaged. He is distally neurovascularly intact. Objective Labs Result Diagrams: 08/02/22 14:10 07/31/22 18:40 Labs: Laboratory Results - last 24 hr 08/02/22 08/02/22 08/02/22 14:10 14:10 14:10 WBC 10.6 RBC 3.82 L Hgb 12.5 L Hct 35.6 L MCV 93.1 MCH 32.6 MCHC 35.1 RDW 12.1 Plt Count 316 Neut % (Auto) 71.0 Lymph % (Auto) 13.8 L [place] % (Auto) 10.2 Eos % (Auto) 4.4 H Baso % (Auto) 0.6 Neut # (Auto) 7500 H Lymph # (Auto) 1500 [place] # (Auto) 1100 H Eos # (Auto) 500 H Baso # (Auto) 100 ESR 40 H C-Reactive Protein 6.9 H Vancomycin Trough 17.3 PFSH Social History household members: none Smoking Status: Former smoker alcohol intake: current Assessment & Plan Post-op Postoperative Procedures: Procedures Operation Date: 08/01/22 16:45 Actual Procedure Side Surgeon p Left arm/elbow irrigation and debridement. Incision and drainage. Left Mary Issa MD Postoperative day: 1 Postoperative status: doing well Postoperative status narrative: -stable status post left elbow I&D Postoperative plan narrative: -mobilize with OT. No limitations to shoulder, wrist, hand ROM. Elbow gentle ROM to tolerance due to fragility of skin/sutures -continue with multimodal pain management -continue with empiric IV vanco -Patient is growing gram + cocci. Waiting on final cultures for discharge antibiotics -disposition: likely home in 24-48 hours, once cultures are finalized.
[2022-08-03] MEDS: SODIUM CHLORIDE 0.9% FLUSH 10 ML IV (04:03)
[2022-08-03] MEDS: VANCOMYCIN 1,000 MG/200 ML PIGGYBACK 200 MG IV (04:04)
[2022-08-03 04:12] VITALS: BP 103/56; PULSE 60; RESP 16; TEMP 36.2; O2SAT 99
[2022-08-03] MEDS: IBUPROFEN 400 MG TABLET PO ×2 (04:17→11:21)
[2022-08-03 08:00] VITALS: BP 114/63; PULSE 64; RESP 20; TEMP 36.4; O2SAT 100
--- NOTE | 2022-08-03 11:48 | OT.IP.TRT ---
Current Diagnoses Cutaneous abscess, unspecified (07/31/22) Surgery Performed Operation Date: 08/01/22 16:45 Actual Procedures p Left arm/elbow irrigation and debridement. Incision and drainage.(Left) - Mary Issa MD Occupational Therapy Treatment Note M2 OT-IP Current Condition Start: 08/02/22 15:22 Freq: Status: Active Protocol: Document 08/02/22 15:22 CGR (Rec: 08/02/22 15:48 CGR [id number]) Occupational Therapy Current Condition Current Condition Evaluation Date 08/02/22 Treatment Diagnosis L elbow brusitis s/p 08/01 I&D L elbow. Diagnosis Onset Date 07/31/22 M3 OT- IP Subjective and Pain Start: 08/02/22 15:22 Freq: Status: Active Protocol: Document 08/03/22 14:02 CGR (Rec: 08/03/22 14:06 CGR [id number]) OT- Subjective Occupational Therapy Visit Type Type Progress Note Visit Start Time 11:40 Visit Stop Time 11:48 Total Visit Minutes 8 Occupational Therapy Visit Comments Patient Comments I feel like I can go home. I am doing my exercises. M4 OT- IP ADL's Start: 08/02/22 15:22 Freq: Status: Active Protocol: Document 08/02/22 15:22 CGR (Rec: 08/02/22 15:48 CGR [id number]) OT [id number] Comments OT Self-Feeding Comments not meal time OT ADL-Grooming General Evaluation Areas Needing Assistance Face Washing Comments OT Grooming Comments standing at sink OT ADL-Oral Care General Eval Oral Care Ability Independent Areas of Assistance Brushing Teeth Comments Oral Care Comments standing at sink OT ADL-Dressing Comments OT Dressing Comments not performed OT ADL-Toileting General Evaluation Toileting Ability Independent Comments OT Toileting Comments simulated seated on toilet OT ADL-Bathing Comments OT Bathing Comments not performed M5 OT- IP IADL's Start: 08/02/22 15:22 Freq: Status: Active Protocol: Document 08/02/22 15:22 CGR (Rec: 08/02/22 15:48 CGR [id number]) OT-Instrumental Activities of Daily Living Deficits IADL Deficits Identified No Deficits Home Safety Awareness Awareness of Need for Assistance at Home Good Awareness Ability to Problem Solve Emergency Able to Problem Solve Situations Medication Management Medication Management No Deficits Identified Money Management Money Management No Deficits Identified Meal Preparation Meal Preparation No Deficits Identified Lead Clinical Research Coordinator Lead Clinical Research Coordinator No Deficits Identified 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 OT- IP Functional Cognition Start: 08/02/22 15:22 Freq: Status: Active Protocol: Document 08/02/22 15:22 CGR (Rec: 08/02/22 15:48 CGR [id number]) Cognitive Factors Limiting Selfcare Function Cognitive Ability Level of Alertness Alert Patient Orientation Name,Age,Birthday,Month,Date, Year,Day of Week,Place, Situation Attention Span Ability Capable of Focused Attention, Capable of Sustained Attention Ability to Follow Commands Able to Follow Multi-Step Commands OT- Vision and Hearing OT- Hearing Assessment OT- Hearing Assessment WFL OT- Vision Assessment Visual Acuity Glasses For Reading Visual Attentiveness WFL Occular Pursuits WFL Visual Convergence WFL M7 OT- IP Mobility and Balance Start: 08/02/22 15:22 Freq: Status: Active Protocol: Document 08/02/22 15:22 CGR (Rec: 08/02/22 15:48 CGR [id number]) OT- Bed Mobility Assessment Supine to Sit Supine to Sit Assist Independent Sit to Supine Sit to Supine Assist Independent Scooting Scooting to Edge of Bed Independent OT-Transfer Assessment Sit to and From Stand Sit to and from Stand Independent Transfers Transfer Ability Independent Technique Transfer Destination Bed,Chair,Toilet Transfer Technique Stand Step Pivot Devices Transfer Assistive Devices None OT- Balance Assessment Sitting Balance and Reactions Static Sitting Balance Ability Normal Dynamic Sitting Balance Ability Normal Standing Balance and Reactions Static Standing Balance Ability Normal Dynamic Standing Balance Ability Normal M8 OT- IP Objective Assessments Start: 08/02/22 15:22 Freq: Status: Active Protocol: Document 08/02/22 15:22 CGR (Rec: 08/02/22 15:48 CGR [id number]) OT Gross Range of Motion Upper Extremity Range of Motion Assessment Left Impaired ROM Impairments L shld restrictions from previous injury L elbow restrictions from recent injury OT- Coordination Assessment Upper Extremity Finger to Nose Test Within Functional Limits Finger Tapping Test Within Functional Limits OT-Muscle Tone Assessment Muscle Tone WNL Yes OT Sensation Assessment Edema Edema Absent M9 OT- IP Assessment and Plan Start: 08/02/22 15:22 Freq: Status: Active Protocol: Document 08/03/22 14:02 CGR (Rec: 08/03/22 14:06 CGR [id number]) OT Summary Assessment and Plan Potential Rehabilitation Potential Excellent Analytic Complexity at Evaluation Low Summary OT Impairments Pain,Range of Motion,Strength Progress Towards Goals Progressing Toward Goals Assessment Summary Pt presents as a low complexity evaluation s/p admit for L elbow pain. Pt underwent 08/01/22 emergency I& D. Pt states he performed therex and states understanding. Pt assisted with rewrapping his dressing. Pt is likely to be safe for a discharge home alone. Goals OT-Other Goals Can perform UE therex without assist. Days to Meet Goals 2 Frequency of Treatment Frequency Of Treatment Once a Day Treatment Plan OT Treatment Plan Therapeutic Exercises Other Treatment Recommendations and Next UE therex Treatment Focus Discharge Recommendations OT Discharge Recommendations Home Transportation Needs at Discharge Private Vehicle
[2022-08-03] MEDS: VANCOMYCIN TROUGH 1 REQUEST MISC (11:57)
[2022-08-03 12:00] VITALS: BP 115/71; PULSE 64; RESP 18; TEMP 36.6; O2SAT 98
[2022-08-03 12:58] LABS: Vancomycin Trough 10.2 ug/mL (10-20)
--- NOTE | 2022-08-03 13:06 | PM.DS.1 ---
History of Present Illness History of Present Illness Date Patient Seen: 08/03/22 Time Patient Seen: 13:07 Chief complaint: Left elbow pain s/p left elbow I&D Narrative: Patient is complaining of [id number] left elbow pain. He denies any numbness or tingling. He denies any fevers, chills, night sweats. Overall he is improving and would like to be discharged home. He has worked with occupational therapy. Discharge Providers Provider Date of admission: 07/31/22 22:27 Discharge Date: 08/03/22 Consults: 08/01/22 17:46 Consult to Discharge Planning Routine Comment: Consult to Physical Therapy Evaluate & Treat Comment: Physician Instructions: Evaluate and Treat Consult to Respiratory Therapy Evaluate & Treat Comment: Physician Instructions: Evaluate and treat 08/02/22 12:13 Consult to Occupational Therapy Evaluate & Treat Comment: encourage finger exercises Physician Instructions: Evaluate and treat Discharge provider: Christina Ibanez PA-C Exam Vital Signs (past 8 hours): - 08/03/22 08:00 08/03/22 12:00 Temperature 97.5 F L 97.9 F Pulse Rate 64 64 Respiratory Rate 20 18 Blood Pressure 114/63 115/71 Pulse Oximetry 100 98 Oxygen Flow Rate 0 0 Oxygen Delivery Method Room Air Oxygen Flow Rate 0 Narrative Exam Narrative: -pleasant 52-year-old male, resting comfortably in bed. Dressing was clean, dry, intact and removed today. Left elbow demonstrates erythema over the olecranon, similar to yesterday. Mild warmth. No pain with passive elbow range of motion. The entire wound packing was removed today. He is distally neurovascularly intact. Objective Labs Result Diagrams: 08/02/22 14:10 07/31/22 18:40 Labs: Laboratory Results - last 24 hr 08/02/22 08/02/22 08/02/22 14:10 14:10 14:10 WBC 10.6 RBC 3.82 L Hgb 12.5 L Hct 35.6 L MCV 93.1 MCH 32.6 MCHC 35.1 RDW 12.1 Plt Count 316 Neut % (Auto) 71.0 Lymph % (Auto) 13.8 L [place] % (Auto) 10.2 Eos % (Auto) 4.4 H Baso % (Auto) 0.6 Neut # (Auto) 7500 H Lymph # (Auto) 1500 [place] # (Auto) 1100 H Eos # (Auto) 500 H Baso # (Auto) 100 ESR 40 H C-Reactive Protein 6.9 H Vancomycin Trough 17.3 08/03/22 11:47 WBC RBC Hgb Hct MCV MCH MCHC RDW Plt Count Neut % (Auto) Lymph % (Auto) [place] % (Auto) Eos % (Auto) Baso % (Auto) Neut # (Auto) Lymph # (Auto) [place] # (Auto) Eos # (Auto) Baso # (Auto) ESR C-Reactive Protein Vancomycin Trough 10.2 PFSH Social History household members: none Smoking Status: Former smoker alcohol intake: current Discharge Assessment & Plan Assessment and Plan Assessment: -stable status post left elbow I and D Plan of Treatment: -continue with OT exercises -cultures and sensitivities are finalized and demonstrated MSSA -discussed the results with the pharmacist and will discontinue vancomycin and changed to p.o. Keflex 500 mg q.i.d. x5 days -daily dressing changes at home. Okay to shower use gentle soap and water. No soaking or submerging. -DC home today -Follow-up in the office in 1 week for wound check Discharge Plan Discharge Plan Patient Disposition: Home Discharge orders & Medications Prescriptions: New acetaminophen 500 mg capsule 500 mg PO Q4H MDD Max 3000 mg per day PRN (Reason: Fever/Mild Pain (1-3)) Qty: 90 0RF cephalexin 250 mg Capsule 500 mg PO QID 5 Days Qty: 40 0RF Rx Instructions: Complete all pills ibuprofen 400 mg Tablet 400 mg PO Q6HR MDD Max 2400 mg per day PRN (Reason: Pain/inflammation) Qty: 90 0RF oxycodone 5 mg Tablet 5 mg PO Q3HR PRN (Reason: Moderate to severe postop pain) Qty: 10 0RF bisacodyl 5 mg Tablet,Delayed Release (Dr/Ec) 10 mg PO BID PRN (Reason: Constipation) Qty: 20 0RF Follow up/Referrals: Mary Issa MD [Physician] - (Follow-up on 08/09 or 08/10 for postoperative wound check) Diet/Activity/Treatments Diet: Diet as Tolerated Skin/Wound/Dressing Care Report to your healthcare provider any signs of infection, such as:: chills, fever, night sweats, unusual drainage and unusual redness Dressing: -daily dressing changes -Okay to gently wash with soap and water daily and apply clean dry dressing. -no soaking, submerging, lotions or ointments directly to the area. Visit Report/Discharge Packet Instructions: DI for Prescription Opioid Use, DI for Incision and Drainage, [facility]: Wound Care Stand Alone Forms: Surgery Discharge
[2022-08-03] MEDS: cephALEXin 250 MG CAPSULE 500 MG PO (13:16)
== END 2022-08-03 13:49 | disposition home or self-care (01) | DRG 512 ==
LOC: ED 18:47 → AC 08-01 01:35
PROVIDERS: Physician Assistant; Admitting Provider Orthopaedic Surgery Orthopaedic Surgery of the Spine; Emergency Provider Emergency Medicine; Visit Provider Orthopaedic Surgery Orthopaedic Surgery of the Spine
PROC: 0PBL0ZZ Excision of Left Ulna, Open Approach (ICD-10-PCS; principal; 2022-08-01 16:45)
DX: M71.022 Abscess of bursa, left elbow (principal); B95.61 Methicillin susceptible Staphylococcus aureus infection as the cause of diseases classified elsewhere; Z87.891 Personal history of nicotine dependence; Z20.822 Contact with and (suspected) exposure to COVID-19
CPT/HCPCS: 10060; 36415; 73080; 80053; 80202; 83605; 85025; 85651; 86140; 87040; 87070; 87075; 87077; 87147; 87186; 87205; 87635; 96365; 96366; 96367; 96375; 97110; 97165; 97530; 99284; C9803; J1170; J2405; J2704; J3010